=== PATIENT | female | born 1990 | race Caucasian/White ===

== ENCOUNTER 2017-07-04 22:27 | Inpatient (IN) | payer OTHER ==
[2017-07-04 23:04] LABS: ADD MAN DIFF? NO
[2017-07-04 23:06] LABS: BASOPHILS % 0.2 % (0.0-2.0); EOSINOPHILS # 0.1 10^3/ul (0.0-0.5); EOSINOPHILS % 0.6 % (0.0-7.0); HEMOGLOBIN 12.5 g/dl (12.0-16.0); LYMPHOCYTES % 12.9 % (15.0-51.0); MEAN CORPUSCULAR HEMOGLOBIN 25.2 pg (29.0-33.0); MEAN CORPUSCULAR HGB CONC 32.1 g/dl (32.0-37.0); MEAN CORPUSCULAR VOLUME 78.5 fl (82.0-101.0); MEAN PLATELET VOLUME 10.1 fl (7.4-10.4); MONOCYTE # 0.8 10^3/ul (0.3-0.9); MONOCYTES % 10.1 % (0.0-11.0); NEUTROPHIL # 6.1 10^3/ul (1.6-7.5); NEUTROPHILS % 75.8 % (39.0-77.0); PLATELET COUNT 337 10^3/UL (140-415); RED BLOOD COUNT 4.97 10^6/ul (4.20-5.40); RED CELL DISTRIBUTION WIDTH 14.6 % (11.5-14.5)
[2017-07-04] MEDS: SODIUM CHLORIDE 0.9% 1L BAG IV* (23:07)
[2017-07-04] MEDS: ACETAMINOPHEN 500 MG TAB PO (23:18)
[2017-07-04] MEDS: KETOROLAC 15 MG INJ IV (23:19)
[2017-07-04 23:23] LABS: LACTIC ACID 1.7 mmol/L (0.5-2.0)
[2017-07-04 23:25] LABS: INR 1.03; PROTIME 13.6 Sec (11.9-14.9); PT RATIO 1.1
[2017-07-04 23:26] LABS: PARTIAL THROMBOPLASTIN TIME 30.1 Sec (25.0-35.0)
[2017-07-04 23:42] LABS: ALANINE AMINOTRANSFERASE 78 IU/L (13-69); ALBUMIN 4.5 g/dl (3.3-4.9); ALBUMIN/GLOBULIN RATIO 1.07; ALKALINE PHOSPHATASE 73 IU/L (42-121); ANION GAP 17 (8-16); ASPARTATE AMINO TRANSFERASE 64 IU/L (15-46); BLOOD UREA NITROGEN 9 mg/dl (7-20); CALCIUM 9.6 mg/dl (8.4-10.2); CARBON DIOXIDE 24 mmol/L (21-31); CHLORIDE 105 mmol/L (97-110); CREATININE 0.89 mg/dl (0.44-1.00); GLUCOSE 107 mg/dl (70-220); POTASSIUM 3.5 mmol/L (3.5-5.1); SODIUM 142 mmol/L (135-144); TOTAL PROTEIN 8.7 g/dl (6.1-8.1)
[2017-07-05 00:08] LABS: TROPONIN-I < 0.012 ng/ml (0.00-0.12)
[2017-07-05] MEDS: OSELTAMIVIR 75 MG CAP PO ×3 (00:12→20:13)
[2017-07-05 00:28] LABS: ADD UMIC NO; UR ASCORBIC ACID 20 mg/dL (NEGATIVE); UR BACTERIA FEW /HPF (NONE SEEN); UR BILIRUBIN (Dip) NEGATIVE (NEGATIVE); UR BLOOD (Dip) NEGATIVE (NEGATIVE); UR CLARITY CLEAR (CLEAR); UR COLOR YELLOW (YELLOW); UR GLUCOSE (Dip) NEGATIVE (NEGATIVE); UR KETONES (Dip) NEGATIVE (NEGATIVE); UR LEUKOCYTE ESTERASE (Dip) NEGATIVE Leu/ul (NEGATIVE); UR MUCUS FEW /HPF (NONE SEEN); UR NITRITE (Dip) NEGATIVE (NEGATIVE); UR RBC 0 /HPF (0-5); UR SPECIFIC GRAVITY (Dip) 1.016 (1.003-1.030); UR TOTAL PROTEIN (Dip) NEGATIVE (NEGATIVE); UR UROBILINOGEN (Dip) NEGATIVE (NEGATIVE); UR WBC 1 /HPF (0-5)
[2017-07-05] MEDS: LEVOFLOXACIN 750MG/D5W (PMX) 150 ML IVPB ×2 (01:04→16:59)
[2017-07-05] MEDS ORDERED: morphine 2 MG INJ IV (02:30)
[2017-07-05] MEDS ORDERED: NACL 0.9% 3 ML SYG IV (02:30)
[2017-07-05] MEDS ORDERED: LEVALBUTEROL (NEB) 0.63 MG/3 ML AMP HHN (02:30)
[2017-07-05] MEDS: ONDANSETRON 4 MG INJ IV (02:31)
[2017-07-05] MEDS: SOD CHLORIDE 0.9% 1,000 ML IV (02:33)
[2017-07-05 05:30] LABS: ADD MAN DIFF? NO
[2017-07-05 05:36] LABS: WHITE BLOOD COUNT 5.2 10^3/ul (4.8-10.8)
[2017-07-05 05:36] LABS: BASOPHILS % 0.4 % (0.0-2.0); EOSINOPHILS % 0.2 % (0.0-7.0); HEMATOCRIT 31.8 % (37.0-47.0); LYMPHOCYTES # 1.2 10^3/ul (0.8-2.9); LYMPHOCYTES % 23.6 % (15.0-51.0); MEAN CORPUSCULAR HEMOGLOBIN 25.3 pg (29.0-33.0); MEAN CORPUSCULAR HGB CONC 31.4 g/dl (32.0-37.0); MEAN CORPUSCULAR VOLUME 80.3 fl (82.0-101.0); MEAN PLATELET VOLUME 10.9 fl (7.4-10.4); MONOCYTE # 0.6 10^3/ul (0.3-0.9); MONOCYTES % 10.6 % (0.0-11.0); NEUTROPHIL # 3.4 10^3/ul (1.6-7.5); PLATELET COUNT 230 10^3/UL (140-415); RED BLOOD COUNT 3.96 10^6/ul (4.20-5.40); RED CELL DISTRIBUTION WIDTH 14.6 % (11.5-14.5)
[2017-07-05 06:00] LABS: LACTIC ACID 0.9 mmol/L (0.5-2.0)
[2017-07-05] MEDS ORDERED: PHENAZOPYRIDINE 100 MG TAB PO (06:00)
[2017-07-05 06:16] LABS: ALANINE AMINOTRANSFERASE 64 IU/L (13-69); ALBUMIN 3.2 g/dl (3.3-4.9); ALBUMIN/GLOBULIN RATIO 1.06; ALKALINE PHOSPHATASE 53 IU/L (42-121); ANION GAP 14 (8-16); ASPARTATE AMINO TRANSFERASE 49 IU/L (15-46); BLOOD UREA NITROGEN 9 mg/dl (7-20); CALCIUM 7.5 mg/dl (8.4-10.2); CARBON DIOXIDE 21 mmol/L (21-31); CHLORIDE 114 mmol/L (97-110); CREATININE 0.68 mg/dl (0.44-1.00); GLUCOSE 89 mg/dl (70-220); MAGNESIUM 1.6 mg/dl (1.7-2.5); POTASSIUM 3.8 mmol/L (3.5-5.1); SODIUM 145 mmol/L (135-144); TOTAL PROTEIN 6.2 g/dl (6.1-8.1)
[2017-07-05] MEDS: SALMETEROL/FLUTICASONE 250/50 INHA INH (08:17)
[2017-07-05] MEDS: MAGNESIUM SULFATE 2 GM/50 ML 50 ML IVPB (08:17)
[2017-07-05 11:36] LABS: B-TYPE NATRIURETIC PEPTIDE 125 PG/ML (0-125)
[2017-07-05] MEDS: SOD CHLORIDE 0.9% 100 ML (11:48)
[2017-07-05] MEDS: IOHEXOL 100 ML (11:48)
[2017-07-05] MEDS: ALBUTEROL/IPRATROPIUM (NEB) 3 ML AMP HHN ×2 (15:00→20:17)
[2017-07-05] MEDS: ACETAMINOPHEN 325 MG TAB PO (16:52)
[2017-07-05] MEDS: BUDESONIDE (NEB) 0.5MG/2ML AMP HHN (20:17)
[2017-07-06] MEDS: ACETAMINOPHEN 325 MG TAB PO (03:23)
[2017-07-06] MEDS: IPRATROPIUM (NEB) 0.5 MG/2.5 ML AMP NEB (03:27)
[2017-07-06 05:21] LABS: ADD MAN DIFF? NO
[2017-07-06 05:27] LABS: BASOPHILS % 0.2 % (0.0-2.0); EOSINOPHILS % 0.2 % (0.0-7.0); LYMPHOCYTES # 1.3 10^3/ul (0.8-2.9); LYMPHOCYTES % 22.1 % (15.0-51.0); MEAN CORPUSCULAR HEMOGLOBIN 25.2 pg (29.0-33.0); MEAN CORPUSCULAR HGB CONC 31.4 g/dl (32.0-37.0); MEAN CORPUSCULAR VOLUME 80.3 fl (82.0-101.0); MEAN PLATELET VOLUME 10.8 fl (7.4-10.4); MONOCYTE # 0.5 10^3/ul (0.3-0.9); MONOCYTES % 8.8 % (0.0-11.0); NEUTROPHIL # 4.1 10^3/ul (1.6-7.5); NEUTROPHILS % 68.2 % (39.0-77.0); PLATELET COUNT 243 10^3/UL (140-415); RED BLOOD COUNT 4.36 10^6/ul (4.20-5.40); RED CELL DISTRIBUTION WIDTH 15.2 % (11.5-14.5)
[2017-07-06 05:51] LABS: ANION GAP 13 (8-16); BLOOD UREA NITROGEN 7 mg/dl (7-20); CALCIUM 8.7 mg/dl (8.4-10.2); CARBON DIOXIDE 25 mmol/L (21-31); CHLORIDE 107 mmol/L (97-110); GLUCOSE 134 mg/dl (70-220); MAGNESIUM 1.9 mg/dl (1.7-2.5); POTASSIUM 3.6 mmol/L (3.5-5.1); SODIUM 141 mmol/L (135-144)
[2017-07-06] MEDS: OSELTAMIVIR 75 MG CAP PO (08:05)
[2017-07-06] MEDS: ALBUTEROL/IPRATROPIUM (NEB) 3 ML AMP HHN (08:19)
[2017-07-06] MEDS: BUDESONIDE (NEB) 0.5MG/2ML AMP HHN (09:00)
== END 2017-07-06 11:45 | disposition home or self-care (01) | DRG 194 ==
LOC: MS3 07-05 02:16 → E/R 22:27
DX: J10.1 Influenza due to other identified influenza virus with other respiratory manifestations (principal); Z68.41 Body mass index [BMI] 40.0-44.9, adult; K76.0 Fatty (change of) liver, not elsewhere classified; J45.909 Unspecified asthma, uncomplicated; E66.01 Morbid (severe) obesity due to excess calories
CPT/HCPCS: 36415; 71045; 71275; 80048; 80053; 81003; 83605; 83735; 83880; 84100; 84443; 84484; 85025; 85610; 85730; 87040; 87086; 87400; 87880; 93005; 93306; 94640; 94664; 96361; 96374; 96375; 99291-25